=== PATIENT | female | born 1930 | race Caucasian/White ===

== ENCOUNTER 2017-08-10 23:03 | Emergency (ER) | payer OTHER, MEDICAID ==
[2017-08-10 23:17] VITALS: RESP 16
--- NOTE | 2017-08-10 23:17 | CPEKG ---
Heart Rate: 68 RR Interval: 882 P-R Interval: 264 QRSD Interval: 76 QT Interval: 408 QTC Interval: 434 P Davenport: 32 QRS Davenport: 12 T Wave Davenport: 46 EKG Severity - ABNORMAL ECG - EKG Impression: SINUS RHYTHM EKG Impression: FIRST DEGREE AV BLOCK Electronically Signed By: Daphne Hart 11-Aug-2017 05:40:09
--- NOTE | 2017-08-10 23:28 | EDPHY ---
H & P Stated Complaint: DIZZINESS/FALL/LAC HPI/ROS: HPI The patient presents brought in by ambulance from [facility] where she is a resident for a fall which occurred just prior to arrival. The patient has a history of dementia and is unable to provide much history but according to the paramedics, the patient was standing at the edge of her bed and fell directly forward, landed on her nose. It is unclear if she lost consciousness. She now says that she feels lightheaded though denies any other complaints. She does not have a headache, vomiting, vision changes. She is on aspirin 81 mg. she does have a history of prior falls. REVIEW OF SYSTEMS Constitutional: No fever, no chills. Eyes: No discharge. ENT: No sore throat. Cardiovascular: No chest pain, no palpitations. Respiratory: No cough, no shortness of breath. Gastrointestinal: No abdominal pain, no vomiting. Genitourinary: No hematuria. Musculoskeletal: No back pain. Skin: No rashes. Neurological: No headache. 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 [facility] , alcohol abuse previously PHYSICAL General Appearance: Alert, no distress Eyes: Pupils equal and round no pallor or injection ENT, Mouth: Nasal bridge laceration which is C-shaped measures 2 cm Mucous membranes moist Respiratory: There are no retractions, lungs are clear to auscultation Cardiovascular: Regular rate and rhythm Gastrointestinal: Abdomen is soft and non-tender, no masses, bowel sounds normal Neurological: A&O, moves all extremities Skin: Warm and dry, no rashes Musculoskeletal: Neck is supple non tender Extremities: symmetrical, full range of motion Psychiatric: Patient is oriented X 2, there is no agitation Source: Patient Exam Limitations: Clinical condition - Personal History Current Tetanus Diphtheria and Acellular Pertussis (TDAP): Yes Tetanus Vaccine Date: 03/10/12 - Medical/Surgical History Hx Asthma: No Hx Chronic Respiratory Disease: No Hx Diabetes: No Hx Cardiac Disease: No Hx Renal Disease: No Hx Cirrhosis: No Hx Alcoholism: No Hx HIV/AIDS: No Hx Splenectomy or Spleen Trauma: No Other PMH: PMH: hypothyroidism, former alcoholic, HTN, INSOMNIA, MEMORY LOSS, HIGH CHOL. - Social History Smoking Status: Former smoker Constitutional: Initial Vital Signs Temperature (C) 36.5 C 10/22/17 23:14 Heart Rate 70 08/10/17 23:14 Respiratory Rate 16 08/10/17 23:14 Blood Pressure 136/68 H 08/10/17 23:14 O2 Sat (%) 93 08/10/17 23:14 O2 Delivery Mode Room Air Allergies/Adverse Reactions: No Known Allergies Allergy (Verified 08/10/17 23:11) Home Medications: Medication Instructions Recorded Aspirin [Aspirin 81mg (OTC)] 81 mg PO DAILY 03/10/12 Levothyroxine [Synthroid 50 mcg 50 mcg PO DAILY06 03/10/12 (RX)] Melatonin [Melatonin 3 mg (OTC)] 3 mg PO HS 03/10/12 Aricept 08/10/17 Docusate Sodium [Colace] 08/10/17 GINKGO BILOBA 08/10/17 Tylenol 08/10/17 Venlafaxine 37.5MG (*) 08/10/17 Cephalexin [Keflex (*)] 500 mg PO Q6H #28 cap 08/11/17 Medical Decision Making - Diagnostics EKG Interpretation: EKG: Complete interpretation has been separately recorded in the [facility] archive. Summary impression: Normal sinus rhythm Imaging Results: Imaging Impressions Head CT 08/10/17 23:11 Impression: 1. Moderate atrophy. 2. No acute hemorrhage, hydrocephalus, or mass effect. 3. Cerebrovascular atherosclerosis. 4. No definite acute infarct. 5. Moderate microvascular ischemic gliosis. 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 7. No epidural or subdural hematoma. Findings and recommendations discussed with Emergency Department physician, Daphne Hart MD at 0:15 hour, 08/11/2017. Final report concurs with initial preliminary interpretation. Procedures: LACERATION REPAIR Procedure: Laceration repair. Verbal consent was obtained from the patient. The linear 2 cm laceration on the nasal bridge was anesthetized using lidocaine. The wound was scrubbed, draped and explored to its base with a gloved finger. There were no deep structures involved. No tendon injury was identified. . The wound was repaired with skin glue. The wound repair was simple. The procedure was performed by myself. Differential Diagnosis: 87-year-old female with dementia, hypertension, hyperlipidemia presents with a fall which occurred just prior to arrival at her assisted living facility. Apparently she was standing next to her bed and fell forward onto the ground, sustaining a laceration to her nasal bridge. It is unclear if she lost consciousness. Differential diagnosis includes syncope, arrhythmia, seizure, mechanical fall. In the emergency department, the patient was monitored with no further events. CT scan of her head was checked which showed no acute bleed. Her laceration was repaired with Dermabond. She felt well while she was here and was able to tolerate fluids without difficulty and ambulate. Labs were checked and did reveal evidence of urinary tract infection. Because of this, she was given a dose of ceftriaxone here and a prescription for Keflex. I feel this is possible the cause of her dizziness that led to her fall. Urine culture was sent. She will be discharged back to her living facility. - Data Points Laboratory Results: Laboratory Results 08/10/17 23:30 08/10/17 23:30 08/11/17 08/10/17 08/10/17 00:35 23:30 23:30 WBC 7.14 10^3/uL 10^3/uL (3.80-9.50) RBC 4.01 10^6/uL L 10^6/uL (4.18-5.33) Hgb 12.7 g/dL g/dL (12.6-16.3) Hct 37.0 % L % (38.0-47.0) MCV 92.3 fL fL (81.5-99.8) MCH 31.7 pg pg (27.9-34.1) MCHC 34.3 g/dL g/dL (32.4-36.7) RDW 13.2 % % (11.5-15.2) Plt Count 152 10^3/uL 10^3/uL (150-400) MPV 9.7 fL fL (8.7-11.7) Neut % (Auto) 48.7 % % (39.3-74.2) Lymph % (Auto) 34.9 % % (15.0-45.0) Cook % (Auto) 10.6 % % (4.5-13.0) Eos % (Auto) 5.0 % % (0.6-7.6) Baso % (Auto) 0.7 % % (0.3-1.7) Nucleat RBC Rel Count 0.0 % % (0.0-0.2) Absolute Neuts (auto) 3.47 10^3/uL 10^3/uL (1.70-6.50) Absolute Lymphs (auto) 2.49 10^3/uL 10^3/uL (1.00-3.00) Absolute Monos (auto) 0.76 10^3/uL 10^3/uL (0.30-0.80) Absolute Eos (auto) 0.36 10^3/uL 10^3/uL (0.03-0.40) Absolute Basos (auto) 0.05 10^3/uL 10^3/uL (0.02-0.10) Absolute Nucleated RBC 0.00 10^3/uL 10^3/uL (0-0.01) Immature Gran % 0.1 % % (0.0-1.1) Immature Gran # 0.01 10^3/uL 10^3/uL (0.00-0.10) Sodium 139 mEq/L mEq/L (134-144) Potassium 4.2 mEq/L mEq/L (3.5-5.2) Chloride 105 mEq/L mEq/L (97-110) Carbon Dioxide 23 mEq/l mEq/l (22-31) Anion Gap 11 mEq/L mEq/L (8-16) BUN 24 mg/dL H mg/dL (7-23) Creatinine 0.8 mg/dL mg/dL (0.6-1.0) Estimated GFR > 60 Glucose 101 mg/dL H mg/dL (70-100) Calcium 10.0 mg/dL mg/dL (8.5-10.4) Total Bilirubin 0.3 mg/dL mg/dL (0.1-1.4) AST 21 IU/L IU/L (14-46) ALT 32 IU/L IU/L (9-52) Alkaline Phosphatase 67 IU/L IU/L (38-126) Total Protein 6.1 g/dL L g/dL (6.3-8.2) Albumin 3.4 g/dL L g/dL (3.5-5.0) Urine Color YELLOW Urine Appearance MODERATELY TURBID Urine pH 5.0 (5.0-7.5) Ur Specific [place] 1.032 H (1.002-1.030) Urine Protein 1+ H (NEGATIVE) Urine Ketones TRACE H (NEGATIVE) Urine Blood NEGATIVE (NEGATIVE) Urine Nitrate NEGATIVE (NEGATIVE) Urine Bilirubin NEGATIVE (NEGATIVE) Urine Urobilinogen 4.0 EU H EU (0.2-1.0) Ur Leukocyte Esterase 3+ H (NEGATIVE) Urine RBC 25-50 /hpf H /hpf (0-3) Urine WBC 50-182 /hpf H /hpf (0-3) Ur Epithelial Cells 2+ /lpf H /lpf (NONE-1+) Ur Renal Epithelial Cell OCCASIONAL /hpf H /hpf (NONE SEEN) Calcium Oxalate Crystal PRESENT /hpf /hpf (NONE-1+) Urine Bacteria 3+ /hpf H /hpf (NONE SEEN) Urine Mucus 4+ /lpf H /lpf (NONE-1+) Urine Glucose NEGATIVE (NEGATIVE) Medications Given: Discontinued Medications Diphtheria/Tetanus/Acell Pertussis (Boostrix) 0.5 ml IM .ONCE ONE Stop: 08/11/17 01:22 Last Admin: 08/11/17 01:35 Dose: 0.5 ml Ceftriaxone Sodium/Dextrose (Rocephin 1 Gm (Premix)) 50 mls @ 100 mls/hr IV EDNOW ONE Stop: 08/11/17 01:59 Last Admin: 08/11/17 01:34 Dose: 50 mls Departure - Departure Disposition: Home, Routine, Self-Care Clinical Impression: Fall Qualifiers: Encounter type: initial encounter Qualified Code(s): W19.XXXA - Unspecified fall, initial encounter Nasal laceration Qualifiers: Encounter type: initial encounter Qualified Code(s): S01.21XA - Laceration without foreign body of nose, initial encounter UTI (urinary tract infection) Qualifiers: Urinary tract infection type: site unspecified Hematuria presence: without hematuria Qualified Code(s): N39.0 - Urinary tract infection, site not specified Condition: Good Instructions: Urinary Tract Infection in Women (ED), Skin Adhesive Care (ED) Referrals: Patient,NotPresent [Unknown] - As per Instructions Prescriptions: Cephalexin [Keflex (*)] 500 mg PO Q6H #28 cap
[2017-08-10 23:38] LABS: % IMMATURE GRANULYOCYTES 0.1 % (0.0-1.1); ABSOLUTE IMMATURE GRANULOCYTES 0.01 10^3/uL (0.00-0.10); ADD DIFF? NO; ADD MORPH? NO; ADD SCAN? NO; ATYPICAL LYMPHOCYTE FLAG 10 (0-99); FRAGMENT RBC FLAG 0 (0-99); HEMOGLOBIN 12.7 g/dL (12.6-16.3); LEFT SHIFT FLG 0 (0-99); LIPEMIA HEMOLYSIS FLAG 90 (0-99); MEAN CELL HEMOGLOBIN 31.7 pg (27.9-34.1); MEAN CELL HEMOGLOBIN CONCENTR. 34.3 g/dL (32.4-36.7); MEAN CELL VOLUME 92.3 fL (81.5-99.8); MEAN PLATELET VOLUME 9.7 fL (8.7-11.7); PLATELET CLUMPS FLAG 10 (0-99); PLATELET COUNT 152 10^3/uL (150-400); RED BLOOD CELL COUNT 4.01 10^6/uL (4.18-5.33); RED CELL DISTRIBUTION WIDTH 13.2 % (11.5-15.2)
[2017-08-10 23:51] LABS: ALANINE AMINOTRANSFERASE 32 IU/L (9-52); ALBUMIN 3.4 g/dL (3.5-5.0); ALKALINE PHOSPHATASE 67 IU/L (38-126); ANION GAP 11 mEq/L (8-16); ASPARTATE AMINOTRANSFERASE 21 IU/L (14-46); BILIRUBIN,TOTAL 0.3 mg/dL (0.1-1.4); CARBON DIOXIDE 23 mEq/l (22-31); CHLORIDE 105 mEq/L (97-110); CREATININE 0.8 mg/dL (0.6-1.0); GLOMERULAR FILTRATION RATE > 60; GLUCOSE 101 mg/dL (70-100); POTASSIUM 4.2 mEq/L (3.5-5.2); SODIUM 139 mEq/L (134-144); TOTAL PROTEIN 6.1 g/dL (6.3-8.2)
[2017-08-11] MEDS ORDERED: SKIN ADHESIVE (DERMABOND) 1 EACH TP ONE ×2 (00:09→02:05)
[2017-08-11 00:56] LABS: COLOR YELLOW; LEUKOCYTE ESTERASE,URINE 3+ (NEGATIVE); NITRITE,URINE NEGATIVE (NEGATIVE)
[2017-08-11 01:05] LABS: BACTERIA 3+ /hpf (NONE SEEN); MUCUS 4+ /lpf (NONE-1+); RBC,URINE 25-50 /hpf (0-3); RENAL EPITHELIAL CELLS OCCASIONAL /hpf (NONE SEEN); WBC,URINE 50-182 /hpf (0-3)
[2017-08-11] MEDS ORDERED: TDAP ADULT 0.5 ML INJ (BOOSTRIX) IM ONE (01:21)
[2017-08-11 03:13] VITALS: BP 145/71; PULSE 77; TEMP 98.1; O2SAT 95
== END 2017-08-11 02:40 | disposition home or self-care (01) ==
LOC: EDUNIT#
PROC: 09QKXZZ Repair Nasal Mucosa and Soft Tissue, External Approach (ICD-10-PCS; principal; 2017-08-10)
DX: S01.21XA Laceration without foreign body of nose, initial encounter (principal); N39.0 Urinary tract infection, site not specified; I10 Essential (primary) hypertension; B96.89 Other specified bacterial agents as the cause of diseases classified elsewhere; Z23 Encounter for immunization; Z87.891 Personal history of nicotine dependence; Z79.82 Long term (current) use of aspirin; W18.39XA Other fall on same level, initial encounter; Y99.8 Other external cause status
CPT/HCPCS: 12011; 70450; 90471; 90715; 93005; 96365; 99285; J0696

== ENCOUNTER 2018-01-17 10:42 | Emergency (ER) | payer OTHER, MEDICAID ==
[2018-01-17 10:49] VITALS: BP 173/90
--- NOTE | 2018-01-17 11:04 | EDPHY ---
H & P Time Seen by Provider: 01/17/18 10:43 HPI/ROS: CHIEF COMPLAINT: Mechanical fall, back pain HISTORY OF PRESENT ILLNESS: 87-year-old female presents to the emergency department by ambulance after she apparently fell out of bed early this morning. The patient is a resident in assisted living at [facility] and apparently has a history of frequent falls trying to get out of bed specially to go to the bathroom. Apparently the patient was trying to get out of bed and had a mechanical fall. She complains of some "very mild" pain in her lower back. She typically does not walk with a walker or cane. She denies pain in her chest or difficulty breathing. She denies any presyncopal symptoms prior to her fall. She does not have a headache. She denies pain in her neck. Denies paresthesias in her upper or lower extremities. REVIEW OF SYSTEMS: Constitutional: No fever, no chills. Eyes: No double or blurry vision. ENT: No sore throat. Respiratory: No cough, no shortness of breath. Cardiac: No chest pain. Gastrointestinal: No abdominal pain, vomiting or diarrhea. Genitourinary: No dysuria. Musculoskeletal: Back pain as above. No neck pain. Skin: No rashes. Neurological: No headache. Past Medical/Surgical History: Hypothyroidism, alcoholism, hypertension, insomnia, memory loss, dyslipidemia Social History: Single and lives in assisted living at [facility] Smoking Status: Former smoker Physical Exam: General Appearance: Alert, no distress. No visible signs of trauma to her head. Eyes: Pupils equal and round. Extraocular motions are all intact. ENT: Mouth: Mucous membranes moist. Respiratory: No wheezing, rhonchi, or rales, lungs are clear to auscultation. Cardiovascular: Regular rate and rhythm. Gastrointestinal: Abdomen is soft and nontender, no masses, no rebound or guarding, bowel sounds normal. Neurological: Alert and oriented x 2, confused on date and time, cranial nerves II through XII grossly intact Skin: Warm and dry, no rashes. Musculoskeletal: Nontender to palpate along the cervical, thoracic or lumbar spine. Neck is supple. Patient is able to walk without assistance and without complaints. Extremities: Full range of motion and no peripheral edema. Psychiatric: Patient is oriented X 3, there is no agitation. Constitutional: Initial Vital Signs Temperature (C) 36.7 C 01/17/18 10:48 Heart Rate 66 01/17/18 10:48 Respiratory Rate 16 01/17/18 10:48 Blood Pressure 173/90 H 01/17/18 10:48 O2 Sat (%) 94 01/17/18 10:48 O2 Delivery Mode Room Air Allergies/Adverse Reactions: No Known Allergies Allergy (Verified 08/10/17 23:11) Home Medications: Medication Instructions Recorded Aspirin [Aspirin 81mg (OTC)] 81 mg PO DAILY 03/10/12 Levothyroxine [Synthroid 50 mcg 50 mcg PO DAILY06 03/10/12 (RX)] Melatonin [Melatonin 3 mg (OTC)] 3 mg PO HS 03/10/12 Aricept 08/10/17 Docusate Sodium [Colace] 08/10/17 GINKGO BILOBA 08/10/17 Tylenol 08/10/17 Venlafaxine 37.5MG (*) 08/10/17 Cephalexin [Keflex (*)] 500 mg PO Q6H #28 cap 08/11/17 Medical Decision Making ED Course/Re-evaluation: 87-year-old female presents emergency department with some mild low back pain after she fell out of bed early this morning. Patient has no pain with palpation on examination. She has a normal gait. She does not have any complaints. The case was discussed with Dr. Shani Tolliver, secondary supervising physician , who did not directly evaluate the patient but agrees with treatment plan. The patient will be discharged back to [facility] arranged by shelter case manager. Differential Diagnosis: Back pain including but not limited to muscular pain, herniated disc, spine fracture, intra-abdominal causes and urinary tract infection. Departure - Departure Disposition: Home, Routine, Self-Care Clinical Impression: Back pain Qualifiers: Back pain location: low back pain Chronicity: acute Back pain laterality: unspecified Sciatica presence: without sciatica Qualified Code(s): M54.5 - Low back pain Condition: Good Instructions: Back Pain (ED) Additional Instructions: Return to the emergency department if you have any worsening back pain, weakness in your legs, numbness or tingling in your arms or legs, change in symptoms or if you feel worse in any way. 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
--- NOTE | 2018-01-17 12:18 | ASMTCMCOM ---
CM Note CM Note Notes: Pt was transported to the Emergency Department today via EMS s/p a fall. Asked to see pt by MARY Mosqueda regarding transportation home. Met with pt to discuss current living situation. Pt reports living in Assisted Living at [facility]. Pt denies having her purse or means to pay for transportation home. Permission received from pt to contact pt's dghtr Lashanda (cell), (home). Call placed to Lashanda, barbarar unable to provide transportation - she lives in [place] and is currently recovering from a rib fracture. Lashanda offered to pay for a taxicab back to [facility]. Call placed to [employer] trip dispatch , spoke with Susu. Per Susu, family is unable to pay for fare over the phone or with a credit card. Pt's benefits verified, call placed to [place] for Medicaid transport. Spoke with Radha at [place]; benefit information provided. Per Radha, pt is eligible for transportation services. Taxi requested. Confirmation number received: [id number]. Update provided to Lashanda and pt. Assisted pt to speak with her dghtr on the phone. Update provided to MARY Bojorquez. Updates provided to dghtr at pt request. Lashanda informed that the pt's apartment was cluttered and dangerous for fall hazards per EMS and RN. Spoke with Lashanda about EMS concerns. Per dghtr, pt "has a history of hoarding and likes to hold on to things." Dghtr is aware of the clutter and will try to address it again soon. The dghtr says the pt "has a difficult time getting rid of things because of her dementia." Update provided to MARY Bojorquez. Meal tray requested. Per dghtr, pt did not eat breakfast this morning. Call placed to [facility] , spoke with Kandice. Informed Kandice pt is en route back to the facility at 12:12. Requested staff assist pt back into her apartment, Kandice to alert her caregivers. CM available for any further issues or concerns. Date Signed: 01/17/2018 12:18 PM Electronically Signed By:Tiff Flynn RN
--- NOTE | 2018-01-17 12:19 | ASDISCHSUM ---
Discharge Information Plan Status:Home with No Needs Medically Cleared to Leave:01/17/2018 Discharge Date:01/17/2018 12:10 PM CM D/C Disposition:Home, Routine, Self-Care ADT D/C Disposition:Home, Routine, Self-Care Projected Discharge Date:01/17/2018 12:10 PM Transportation at D/C:Medicaid Transportation Discharge Delay Reason: Follow-Up Date:01/17/2018 12:10 PM Discharge Slot:1 - 8:01 am - 12:00 noon Final Diagnosis:Acute low back pain Placement Information Patient Contact Information Contact Name:MUSA Relationship:Daughter Address: City:[place] Alternate Phone: [facility] Code:CO Email: Financial Information Financial Class:Medicare Primary Plan Desc:MEDICARE OUTPATIENT Primary Plan Number:[id number] Secondary Plan Desc:MEDICAID HEALTH FIRST FULL TIME BABYSITTER Secondary Plan Number:[id number] Assessment Information [facility] CM Progress Note CM Note CM Note Notes: Pt was transported to the Emergency Department today via EMS s/p a fall. Asked to see pt by MARY Mosqueda regarding transportation home. Met with pt to discuss current living situation. Pt reports living in Assisted Living at [facility]. Pt denies having her purse or means to pay for transportation home. Permission received from pt to [facility] L[facility] (cell), (home). Call placed to [employer] [place] unable to provide transportation - she lives in [place] and is currently recovering from a rib fracture. Lashanda offered to pay for a taxicab back to [facility]. Call placed to [employer] trip dispatch , spoke with Susu. Per Susu, family is unable to pay for fare over the phone or with a credit card. Pt's benefits verified, call placed to [facility] for Medicaid transport. Spoke with Radha at [employer]; benefit information provided. Per Radha, pt is eligible for transportation services. Taxi requested. Confirmation number received: [id number]. Update provided to Lashanda and pt. Assisted pt to speak with her dghtr on the phone. Update provided to MARY Bojorquez. Updates provided to dghtr at pt request. Lashanda informed that the pt's apartment was cluttered and dangerous for fall hazards per EMS and RN. Spoke with Lashanda about EMS concerns. Per dghtr, pt "has a history of hoarding and likes to hold on to things." Dghtr is aware of the clutter and will try to address it again soon. The dghtr says the pt "has a difficult time getting rid of things because of her dementia." Update provided to MARY Bojorquez. Meal tray requested. Per dghtr, pt did not eat breakfast this morning. Call placed to [facility] , spoke with Kandice. Informed Kandice pt is en route back to the facility at 12:12. Requested staff assist pt back into her apartment, Kandice to alert her caregivers. CM available for any further issues or concerns. Date Signed: 01/17/2018 12:18 PM Electronically Signed By:Tiff Flynn RN Intervention Information Intervention Type:Transportation Date of Service:01/17/2018 12:18 PM Patient Type:Emergency Room Staff Member:MARY Flynn Taylor Hours:0.5 Discipline: Severity: Comment:Arranged for [facility] transport back to [facility].
--- NOTE | 2018-01-17 13:00 | ASMTCMCOM ---
CM Note CM Note Notes: Spoke with MARY Bojorquez. Call received from Sherley at [facility]. Per Sherley Bojorquez said "[facility] would not be taking pt back upon on arrival to the facility, if she couldn't walk independently from the taxi to her apartment." This CM called [facility] and asked to speak with the stock broker supervisor on duty. Per Kandice, "there are not any supervisors working today." Call transferred to Sherley, pt's caregiver. Spoke with Sherley - clarified reason for CM call. CM requesting staff assist pt from taxi to apartment to ensure pt's safety (to prevent another fall) and to prevent pt from having increased back pain/discomfort. Sherley agreed to assist pt. Pt had just arrived and was able to ambulate independently. Sherley agreed to accept pt. Update provided to MARY Bojorquez, and JAGUAR Duke. CM available for any further issues or concerns. Date Signed: 01/17/2018 12:59 PM Electronically Signed By:Tiff Flynn RN
== END 2018-01-17 12:10 | disposition home or self-care (01) ==
LOC: EDUNIT#
DX: S39.92XA Unspecified injury of lower back, initial encounter (principal); I10 Essential (primary) hypertension; Z79.82 Long term (current) use of aspirin; Z87.891 Personal history of nicotine dependence; W06.XXXA Fall from bed, initial encounter; Y92.009 Unspecified place in unspecified non-institutional (private) residence as the place of occurrence of the external cause; Y99.8 Other external cause status; Y93.89 Activity, other specified